=== PATIENT | male | born 1985 | race Caucasian/White ===

== ENCOUNTER 2020-01-06 09:47 | Emergency (ER) | payer SELFPAY | END 2020-01-06 15:44 | LOC: ERS 09:47 | DX: R45.851 Suicidal ideations (principal); S71.111D Laceration without foreign body, right thigh, subsequent encounter; L03.115 Cellulitis of right lower limb; F31.9 Bipolar disorder, unspecified; F41.9 Anxiety disorder, unspecified; F17.210 Nicotine dependence, cigarettes, uncomplicated; Z79.899 Other long term (current) drug therapy; F15.10 Other stimulant abuse, uncomplicated | CPT/HCPCS: 99285 ==

== ENCOUNTER 2020-04-28 19:53 | Inpatient (IN) | payer OTHER ==
[2020-04-28] MEDS ORDERED: Rocuronium Bromide 10 MG/ML (10ML VIAL) ONE (19:54)
[2020-04-28] MEDS ORDERED: EPINEPHrine 1 MG/10 ML Abboject SYRINGE ONE (20:00)
[2020-04-28] MEDS ORDERED: Boostrix 0.5 ML (Tdap) VIAL ONE ×2 (20:03→22:48)
[2020-04-28 20:05] LABS: #Basophils 0.1 thou/uL (0.0-0.2); #Lymphocytes 2.1 thou/uL (1.20-3.40); #Monocytes 0.9 thou/uL (0.11-0.59); #Neutrophils 12.5 thou/uL (1.40-6.50); %Basophils 0.7 % (0.0-1.0); %Eosinophils 0.1 % (0.0-10.0); %Lymphocytes 13.7 % (21.0-51.0); %Monocytes 5.9 % (0.0-10.0); %Neutrophils 79.7 % (42.0-75.0); Hemoglobin 16.4 g/dL (14.0-18.0); Mean Corpuscular HGB CONC 34.2 g/dL (32.0-36.0); Mean Corpuscular Volume 93.6 fL (78.0-98.0); Mean Platelet Volume 8.2 fL (7.4-10.4); Platelet Count 319 thou/uL (130-400); RBC Distribution Width 12.3 % (11.5-14.5); Red Blood Cell (RBC) Count 5.11 mill/uL (4.70-6.10); White Blood Cell (WBC) Count 15.7 thou/uL (4.8-10.8)
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
[2020-04-28 20:12] LABS: INR-International Normal Ratio 1.1; PTT 23.5 sec (22.9-36.1); Prothrombin Time 14.5 sec (12.0-14.7)
[2020-04-28] MEDS ORDERED: Gentamicin 300 MG in Sodium Chloride 0.9% 100 ML IVPB ONE (20:15)
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
[2020-04-28 20:33] LABS: Acetaminophen Less than 6.0 mcg/mL (10.0-30.0); Alcohol 227 mg/dL (Less than 10); Salicylate Less than 8.0 mg/dL (15.0-30.0)
[2020-04-28 20:36] LABS: Lactic Acid 9.6 mmol/L (0.5-2.2)
[2020-04-28 20:47] LABS: ALT (SGPT) 47 U/L (8-55); AST (SGOT) 39 U/L (5-34); Albumin 3.3 g/dL (3.5-5.0); Alcohol 198 mg/dL (Less than 10); Alkaline Phosphatase 62 U/L (40-110); Anion Gap 21 mmol/L (10-20); BUN (Urea Nitrogen) 16 mg/dL (8.9-20.6); Bilirubin, Total 0.6 mg/dL (0.2-1.2); Calc. Creatinine Clearance 0 mL/min (70-130); Calcium 7.4 mg/dL (7.8-10.44); Carbon Dioxide 11 mmol/L (22-29); Chloride 108 mmol/L (98-107); Estimated GFR-MDRD Greater than 90; Globulin 2.2 g/dL (2.4-3.5); Glucose 75 mg/dL (70-105); Potassium 3.4 mmol/L (3.5-5.1); Protein, Total 5.5 g/dL (6.0-8.3); Sodium 137 mmol/L (136-145)
[2020-04-28 20:50] LABS: Bilirubin Negative (Negative); Blood, Urine Negative (Negative); Clarity Clear (Clear); Glucose, Urine (Dipstick) Normal (Negative); Ketone, Urine 20 mg/dL (Negative); Leukocyte Negative Leu/uL (Negative); Nitrite Negative (Negative); Protein, Urine (Dipstick) 10 mg/dL (Neg-Trace); Specific Gravity, Urine 1.014 (1.002-1.036); Urobilinogen Normal mg/dL (Less than 2)
[2020-04-28 21:03] LABS: Amphetamine Detected (NotDetected); Barbiturates Screen Not Detected (NotDetected); Benzodiazepine Screen Not Detected (NotDetected); Cocaine Metabolite Screen Not Detected (NotDetected); Medtox Control Line Valid? VALID (VALID); Medtox Reader # READER 4; Methadone Not Detected (NotDetected); Methamphetamine Not Detected (NotDetected); Opiate Screen Not Detected (NotDetected); Oxycodone Screen Not Detected (NotDetected); Phencyclidine (PCP) Not Detected (NotDetected); THC/Cannabinoid Screen Not Detected (NotDetected); Tricyclic Screen Not Detected (NotDetected)
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
[2020-04-28 21:08] LABS: Actual Bicarbonate (HCO3a) 14.1 mEq/L (22-28); Base Excess (BEa) -13.6 mEq/L (-2.0 to +3.0); CO2 Tension 38.7 mmHg (35.0-45.0); Calcium, Ionized (arterial) 1.08 mmol/L (1.12-1.30); Carboxyhemoglobin (COHb) 1.4 gm% (0.0-3.0); Hemoglobin (Hb) 14.1 g/dL (14.0-18.0); O2 Tension (PaO2), arterial 274.1 mmHg (80.0-100.0); Potassium - ABG Lab 3.52 mmol/L (3.70-5.30)
[2020-04-28 21:14] LABS: ALV-art Gradient 390.525 mmHg (0-20); Puncture Site RRA; pH, Arterial 7.18 (7.35-7.45)
[2020-04-28] MEDS ORDERED: Sodium Bicarb 50 MEQ/50 ML Abboject 8.4% SYRINGE ONE (21:16)
[2020-04-28] MEDS ORDERED: Dextrose 50% Abboject 50 ML SYRINGE SLOW IVP PRN (21:53)
[2020-04-28] MEDS ORDERED: Dextrose 5% in Water 1,000 ML IV PRN (21:53)
[2020-04-28] MEDS ORDERED: Sodium Chloride 0.9% 1,000 ML IV SCH (22:00)
[2020-04-28] MEDS ORDERED: Ventilator Sedation Protocol 1 EACH FS ONE (22:06)
[2020-04-28] MEDS ORDERED: Calcium Chloride 1 GM/10 ML Abboject SYRINGE IVP SCH (22:15)
[2020-04-28] MEDS ORDERED: Acetaminophen 650 MG Suppository PR PRN (22:16)
[2020-04-28] MEDS ORDERED: Lorazepam 2 MG/ML VIAL SLOW IVP PRN (22:30)
[2020-04-28] MEDS ORDERED: Morphine 2 MG/ML VIAL SLOW IVP PRN (22:30)
[2020-04-28] MEDS ORDERED: Propofol BOLUS 1,000 MG/100 ML VIAL IV PRN (22:30)
[2020-04-28] MEDS ORDERED: Propofol 1,000 MG/100 ML VIAL IV PRN (22:30)
[2020-04-28] MEDS ORDERED: DISCONTINUE PREVIOUS NARCOTIC PAIN MEDICATIONS AND BENZODIAZEPINES FS SCH (22:30)
[2020-04-28] MEDS ORDERED: Fentanyl BOLUS 250 ML IVPB PRN (22:30)
[2020-04-28 22:31] LABS: Magnesium 1.6 mg/dL (1.6-2.6); Phosphorus 4.2 mg/dL (2.3-4.7)
[2020-04-28 22:43] LABS: Base Excess (BEa) -6.5 mEq/L (-2.0 to +3.0); CO2 Tension 37.8 mmHg (35.0-45.0); Calcium, Ionized (arterial) 0.96 mmol/L (1.12-1.30); Carboxyhemoglobin (COHb) 0.8 gm% (0.0-3.0); Hemoglobin (Hb) 14.1 g/dL (14.0-18.0); O2 Tension (PaO2), arterial 352.7 mmHg (80.0-100.0); Potassium - ABG Lab 3.92 mmol/L (3.70-5.30); pH, Arterial 7.32 (7.35-7.45)
[2020-04-28 22:50] LABS: Puncture Site RRA
[2020-04-28] MEDS ORDERED: Potassium Phosphate 30 MMOL in Sodium Chloride 0.9% 250 ML 250 ML IVPB SCH (23:00)
[2020-04-28 23:57] LABS: Lactic Acid 6.1 mmol/L (0.5-2.2)
[2020-04-28] MEDS: Sodium Chloride 0.9% 1,000 ML IV SCH (23:58)
[2020-04-29] MEDS ORDERED: Calcium Chloride 1 GM/10 ML Abboject SYRINGE IVP SCH (00:06)
[2020-04-29 00:55] VITALS: BMI 26.6
[2020-04-29] MEDS ORDERED: CALCIUM CHLORIDE IVPB SCH (01:00)
[2020-04-29] MEDS ORDERED: SODIUM CHLORIDE 0.9% IVPB SCH (01:00)
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
[2020-04-29] MEDS ORDERED: Sodium Chloride 0.9% 1,000 ML IV SCH ×3 (06:26→13:45)
[2020-04-29] MEDS ORDERED: FLU VACC QS2020-21(6MOS UP)/PF 60 MCG/0.5 ML SYRINGE IM ONE (07:45)
[2020-04-29] MEDS ORDERED: Fosphenytoin Sodium 1,250 MG in Sodium Chloride 0.9% 50 ML IVPB SCH (08:00)
[2020-04-29 08:06] LABS: #Lymphocytes 1.2 thou/uL (1.20-3.40); #Monocytes 1.2 thou/uL (0.11-0.59); #Neutrophils 16.1 thou/uL (1.40-6.50); %Basophils 0.2 % (0.0-1.0); %Eosinophils 0.1 % (0.0-10.0); %Lymphocytes 6.5 % (21.0-51.0); %Monocytes 6.2 % (0.0-10.0); %Neutrophils 87.1 % (42.0-75.0); Hemoglobin 13.3 g/dL (14.0-18.0); Mean Corpuscular HGB CONC 34.6 g/dL (32.0-36.0); Mean Corpuscular Hemoglobin 32.9 pg (27.0-31.0); Mean Corpuscular Volume 95.1 fL (78.0-98.0); Mean Platelet Volume 8.8 fL (7.4-10.4); Platelet Count 223 thou/uL (130-400); RBC Distribution Width 12.4 % (11.5-14.5); Red Blood Cell (RBC) Count 4.06 mill/uL (4.70-6.10); White Blood Cell (WBC) Count 18.5 thou/uL (4.8-10.8)
[2020-04-29] MEDS: Sodium Chloride 0.9% 1,000 ML IV SCH ×3 (08:12→17:21)
[2020-04-29 08:40] LABS: Actual Bicarbonate (HCO3a) 19.6 mEq/L (22-28); Base Excess (BEa) -5.3 mEq/L (-2.0 to +3.0); CO2 Tension 36.3 mmHg (35.0-45.0); Calcium, Ionized (arterial) 1.31 mmol/L (1.12-1.30); Carboxyhemoglobin (COHb) 0.3 gm% (0.0-3.0); Hemoglobin (Hb) 12.4 g/dL (14.0-18.0); O2 Tension (PaO2), arterial 112.8 mmHg (80.0-100.0); Potassium - ABG Lab 5.39 mmol/L (3.70-5.30); Puncture Site LBA; pH, Arterial 7.35 (7.35-7.45)
[2020-04-29 08:41] LABS: ALV-art Gradient 198.325 mmHg (0-20)
[2020-04-29] MEDS: fentaNYL Citrate/PF 2,000 MCG in Sodium Chloride 0.9% 60 ML IV SCH (08:47)
[2020-04-29] MEDS: Famotidine/PF 20 mg/2ml Vial SLOW IVP SCH ×2 (08:51→21:56)
[2020-04-29] MEDS: cefTRIAXone\\ROCEPHIN 2 GM in Sodium Chloride 0.9% 100 ML IVPB SCH (08:51)
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
[2020-04-29 09:18] LABS: Phosphorus 4.5 mg/dL (2.3-4.7)
[2020-04-29 09:19] LABS: Anion Gap 21 mmol/L (10-20); BUN (Urea Nitrogen) 14 mg/dL (8.9-20.6); Calc. Creatinine Clearance 141 mL/min (70-130); Calcium 9.6 mg/dL (7.8-10.44); Carbon Dioxide 15 mmol/L (22-29); Chloride 106 mmol/L (98-107); Estimated GFR-MDRD Greater than 90; Glucose 76 mg/dL (70-105); Magnesium 1.6 mg/dL (1.6-2.6); Potassium 4.4 mmol/L (3.5-5.1); Sodium 138 mmol/L (136-145)
[2020-04-29 09:24] LABS: Lactic Acid 3.4 mmol/L (0.5-2.2)
--- NOTE | 2020-04-29 09:49 | RAD ---
CHEST 1 VIEW: Date: 04/29/2020 HISTORY: Intubated patient. COMPARISON: Radiograph dated 04/28/2020. FINDINGS: New right middle lobe and right lower lobe consolidation with some volume loss. Left lung is clear. N o pneumothorax. Endotracheal tube tip at the level of the clavicles. Enteric tube tip at gastric fund us. IMPRESSION: 1. New right middle lobe and right lower lobe consolidative process with some volume loss suggesting atelectatic changes. 2. Satisfactory location of endotracheal and enteric tubes. POS: [facility]
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
[2020-04-29] MEDS ORDERED: Magnesium 2 GM/50 ML 2 GM in Premix Bag 1 BAG IVPB SCH (12:30)
[2020-04-29 12:50] LABS: INR-International Normal Ratio 1.1; PTT 26.9 sec (22.9-36.1); Prothrombin Time 14.7 sec (12.0-14.7)
[2020-04-29] MEDS ORDERED: Iopamidol 370 76% 100 ML VIAL ONE (12:51)
[2020-04-29] MEDS: Acetaminophen 650 MG Suppository PR SCH ×2 (13:53→18:35)
[2020-04-29] MEDS: Insulin Regular 300 UNITS/3 ML VIAL SC PRN (18:03)
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
[2020-04-30] MEDS ORDERED: diphenhydrAMINE 50 MG/ML VIAL IVP SCH (00:15)
[2020-04-30] MEDS: Acetaminophen 650 MG Suppository PR SCH ×3 (01:03→22:21)
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
[2020-04-30] MEDS: Sodium Chloride 0.9% 1,000 ML IV SCH ×3 (02:14→17:30)
[2020-04-30 04:29] LABS: Anion Gap 9 mmol/L (10-20); BUN (Urea Nitrogen) 10 mg/dL (8.9-20.6); Calc. Creatinine Clearance 151 mL/min (70-130); Calcium 7.8 mg/dL (7.8-10.44); Carbon Dioxide 25 mmol/L (22-29); Chloride 104 mmol/L (98-107); Estimated GFR-MDRD Greater than 90; Glucose 148 mg/dL (70-105); Magnesium 1.9 mg/dL (1.6-2.6); Sodium 134 mmol/L (136-145)
[2020-04-30 04:30] LABS: #Lymphocytes 0.9 thou/uL (1.20-3.40); #Monocytes 0.8 thou/uL (0.11-0.59); %Basophils 0.2 % (0.0-1.0); %Eosinophils 0.1 % (0.0-10.0); %Lymphocytes 8.2 % (21.0-51.0); %Monocytes 7.2 % (0.0-10.0); %Neutrophils 84.3 % (42.0-75.0); Hemoglobin 10.1 g/dL (14.0-18.0); Mean Corpuscular HGB CONC 35.6 g/dL (32.0-36.0); Mean Corpuscular Hemoglobin 33.7 pg (27.0-31.0); Mean Corpuscular Volume 94.8 fL (78.0-98.0); Mean Platelet Volume 8.6 fL (7.4-10.4); Phosphorus 1.4 mg/dL (2.3-4.7); Platelet Count 130 thou/uL (130-400); Red Blood Cell (RBC) Count 3.01 mill/uL (4.70-6.10); White Blood Cell (WBC) Count 10.7 thou/uL (4.8-10.8)
[2020-04-30] MEDS ORDERED: Sodium Phosphate 30 MMOL in Sodium Chloride 0.9% 250 ML 250 ML IVPB SCH (05:30)
[2020-04-30] MEDS: fentaNYL Citrate/PF 2,000 MCG in Sodium Chloride 0.9% 60 ML IV SCH ×2 (05:52→22:26)
[2020-04-30] MEDS: diphenhydrAMINE 50 MG/ML VIAL IVP PRN (06:19)
[2020-04-30 06:57] LABS: Actual Bicarbonate (HCO3a) 23.8 mEq/L (22-28); Base Excess (BEa) 1.2 mEq/L (-2.0 to +3.0); CO2 Tension 30.6 mmHg (35.0-45.0); Calcium, Ionized (arterial) 1.14 mmol/L (1.12-1.30); Carboxyhemoglobin (COHb) 0.2 gm% (0.0-3.0); Hemoglobin (Hb) 10.3 g/dL (14.0-18.0); O2 Tension (PaO2), arterial 141.1 mmHg (80.0-100.0); Potassium - ABG Lab 3.72 mmol/L (3.70-5.30); pH, Arterial 7.51 (7.35-7.45)
[2020-04-30] MEDS ORDERED: Magnesium 2 GM/50 ML 2 GM in Premix Bag 1 BAG IVPB SCH (07:45)
[2020-04-30 07:54] LABS: Puncture Site RRAD
[2020-04-30] MEDS ORDERED: Lidocaine 1% w/Epinephrine 1:100K 20 ML VIAL ONE (08:09)
[2020-04-30] MEDS ORDERED: Lidocaine 1% w/Epinephrine 1:100K 20 ML VIAL FS SCH (08:15)
[2020-04-30] MEDS ORDERED: Midazolam HCl 2 mg/2 ml Vial SLOW IVP SCH (08:15)
[2020-04-30] MEDS ORDERED: Vecuronium 10 MG VIAL IV SCH (08:15)
[2020-04-30] MEDS: cefTRIAXone\\ROCEPHIN 2 GM in Sodium Chloride 0.9% 100 ML IVPB SCH (08:38)
[2020-04-30] MEDS: Famotidine/PF 20 mg/2ml Vial SLOW IVP SCH ×2 (08:39→20:44)
--- NOTE | 2020-04-30 09:49 | RAD ---
PORTABLE CHEST: HISTORY: Right lower lobe pneumonia. COMPARISON: Prior day's exam. FINDINGS: Heart size and mediastinum within normal limits. Endotracheal and NG tubes are in satisfactory posit ion. Right lower lobe infiltrative lung changes are improved as compared to the prior examination. IMPRESSION: Right basilar infiltrative change improved as compared to the prior study. POS: KVNG
[2020-04-30] MEDS: Midazolam HCl 2 mg/2 ml Vial ONE ×2 (10:15→10:25)
[2020-04-30] MEDS ORDERED: Midazolam HCl 2 mg/2 ml Vial IVP SCH (11:00)
--- NOTE | 2020-04-30 13:08 | PRG ---
DATE OF SERVICE: 04/30/2020 Mr. Galindo remains neurologically stable with a GCS of 10T. He follows commands in bilateral upper extremities. He keeps his right eye closed today. He has already had tracheostomy and PEG tube placement. Tomorrow morning, he is scheduled for wiring of his jaw. At that time, I will take the opportunity to debride his left frontal exit wound and attempt closure. Job ID: [id number]
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
[2020-04-30 14:14] LABS: Actual Bicarbonate (HCO3a) 23.5 mEq/L (22-28); CO2 Tension 33.9 mmHg (35.0-45.0); Calcium, Ionized (arterial) 1.09 mmol/L (1.12-1.30); Carboxyhemoglobin (COHb) 0.3 gm% (0.0-3.0); Hemoglobin (Hb) 9.3 g/dL (14.0-18.0); O2 Tension (PaO2), arterial 212.6 mmHg (80.0-100.0); Potassium - ABG Lab 3.62 mmol/L (3.70-5.30); pH, Arterial 7.46 (7.35-7.45)
[2020-04-30 14:34] LABS: Puncture Site RBRACH
[2020-04-30 14:35] LABS: ALV-art Gradient 244.125 mmHg (0-20)
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
[2020-04-30 16:01] LABS: Actual Bicarbonate (HCO3a) 24.2 mEq/L (22-28); Base Excess (BEa) 1.1 mEq/L (-2.0 to +3.0); CO2 Tension 32.8 mmHg (35.0-45.0); Calcium, Ionized (arterial) 1.11 mmol/L (1.12-1.30); Carboxyhemoglobin (COHb) 0.2 gm% (0.0-3.0); O2 Tension (PaO2), arterial 109.8 mmHg (80.0-100.0); Potassium - ABG Lab 3.64 mmol/L (3.70-5.30); pH, Arterial 7.49 (7.35-7.45)
[2020-04-30 16:04] LABS: Puncture Site RBRACH
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
[2020-04-30] MEDS: Acetaminophen 500 MG TAB PER TUBE SCH (18:54)
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
[2020-05-01] MEDS: Sodium Chloride 0.9% 1,000 ML IV SCH ×4 (00:37→18:35)
[2020-05-01] MEDS: Acetaminophen 500 MG TAB PER TUBE SCH ×5 (00:38→23:00)
--- NOTE | 2020-05-01 02:58 | PRG ---
DATE OF SERVICE: 04/30/2020 SUBJECTIVE: The patient was seen during evening rounds on the critical care unit. The patient is on full mechanical ventilatory support. The patient is only receiving fentanyl for pain and sedation at this time, dose is 100 mcg per hour. The patient's urinary output is adequate. The patient's vital signs are stable and temperature is 100.1 currently. The patient arouses to voice and follows commands. Current [place] Coma Scale is E3, V1, M6 for a for a total of 10T. PLAN: Continue full mechanical ventilatory support. Continue to monitor urinary output and ensure patient's MAP stays 70 or above. The patient is going to the OR tomorrow with Oral Maxillofacial Surgery and Neurosurgery. The patient was evaluated by Ophthalmology, Dr. Evans, who recommends no specific treatment, but we will follow him periodically. Job ID: [id number]
[2020-05-01 04:33] LABS: Anion Gap 11 mmol/L (10-20); BUN (Urea Nitrogen) 6 mg/dL (8.9-20.6); Calc. Creatinine Clearance 177 mL/min (70-130); Calcium 7.8 mg/dL (7.8-10.44); Carbon Dioxide 24 mmol/L (22-29); Chloride 104 mmol/L (98-107); Estimated GFR-MDRD Greater than 90; Glucose 107 mg/dL (70-105); Magnesium 1.9 mg/dL (1.6-2.6); Phosphorus 2.2 mg/dL (2.3-4.7); Potassium 3.7 mmol/L (3.5-5.1); Sodium 135 mmol/L (136-145)
[2020-05-01 05:12] LABS: #Monocytes 0.6 thou/uL (0.11-0.59); #Neutrophils 6.9 thou/uL (1.40-6.50); %Basophils 0.3 % (0.0-1.0); %Eosinophils 0.5 % (0.0-10.0); %Lymphocytes 11.5 % (21.0-51.0); %Monocytes 7.3 % (0.0-10.0); %Neutrophils 80.4 % (42.0-75.0); Hemoglobin 9.1 g/dL (14.0-18.0); Mean Corpuscular HGB CONC 36.9 g/dL (32.0-36.0); Mean Corpuscular Hemoglobin 34.5 pg (27.0-31.0); Mean Corpuscular Volume 93.6 fL (78.0-98.0); Platelet Count 108 thou/uL (130-400); Platelet Morphology Comment Appears Decreased; RBC Distribution Width 11.7 % (11.5-14.5); Red Blood Cell (RBC) Count 2.64 mill/uL (4.70-6.10); White Blood Cell (WBC) Count 8.6 thou/uL (4.8-10.8)
[2020-05-01 07:32] LABS: Actual Bicarbonate (HCO3a) 25.3 mEq/L (22-28); Base Excess (BEa) 1.3 mEq/L (-2.0 to +3.0); CO2 Tension 37.8 mmHg (35.0-45.0); Calcium, Ionized (arterial) 1.13 mmol/L (1.12-1.30); Carboxyhemoglobin (COHb) 0.1 gm% (0.0-3.0); Hemoglobin (Hb) 11.8 g/dL (14.0-18.0); O2 Tension (PaO2), arterial 123.8 mmHg (80.0-100.0); Potassium - ABG Lab 3.49 mmol/L (3.70-5.30); pH, Arterial 7.44 (7.35-7.45)
[2020-05-01] MEDS ORDERED: Magnesium 2 GM/50 ML 2 GM in Premix Bag 1 BAG IVPB SCH (08:00)
[2020-05-01] MEDS ORDERED: Calcium Chloride 1 GM/10 ML Abboject SYRINGE IVP SCH (08:00)
[2020-05-01] MEDS ORDERED: Potassium Phosphate 30 MMOL in Sodium Chloride 0.9% 250 ML 250 ML IVPB SCH (08:00)
[2020-05-01 08:10] LABS: Puncture Site RRAD
--- NOTE | 2020-05-01 08:39 | RAD ---
Chest one view HISTORY: Pneumonia. Follow-up. COMPARISON: 04/30/2020. FINDINGS: Cardiac silhouette is magnified by projection. Shallow inspiration accentuates pulmonary ma rkings. Mediastinum is midline. Tracheostomy appliance in place. Mild infiltrate at the right lung base is stable.. No evidence of pneumothorax. IMPRESSION : Mild right basilar infiltrate stable.. Tracheostomy appliance in good radiographic position. Interval removal of the nasogastric tube.
[2020-05-01] MEDS: Famotidine/PF 20 mg/2ml Vial SLOW IVP SCH ×2 (09:20→20:37)
[2020-05-01] MEDS: cefTRIAXone\\ROCEPHIN 2 GM in Sodium Chloride 0.9% 100 ML IVPB SCH (09:22)
[2020-05-01] MEDS ORDERED: PROPOFOL 200 MG/20 ML VIAL ONE (09:45)
[2020-05-01] MEDS ORDERED: Lidocaine 1% PF 5 ML VIAL ONE (09:45)
[2020-05-01] MEDS ORDERED: Rocuronium Bromide 10 MG/ML (10ML VIAL) ONE (09:45)
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
[2020-05-01] MEDS ORDERED: Chlorhexidine Gluconate 15 ML UDCUP SSP ONE (12:02)
[2020-05-01] MEDS ORDERED: Fentanyl 100 MCG/2 ML VIAL ONE (12:08)
[2020-05-01] MEDS ORDERED: Midazolam HCl 2 mg/2 ml Vial ONE (12:08)
[2020-05-01] MEDS ORDERED: Sodium Chloride 0.9% 10 ML ONE ×2 (12:11→13:27)
[2020-05-01] MEDS ORDERED: Lidocaine 1% w/Epinephrine 1:100K 20 ML VIAL ONE (12:11)
[2020-05-01] MEDS ORDERED: Bacitracin Zinc Ointment 30 gm TUBE ONE (12:11)
[2020-05-01] MEDS ORDERED: Rocuronium Bromide 50 MG/5 ML VIAL ONE ×2 (14:52→14:54)
[2020-05-01] MEDS ORDERED: SUGAMMADEX SODIUM 200 MG/2 ML VIAL ONE (15:01)
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
[2020-05-01] MEDS: fentaNYL Citrate/PF 2,000 MCG in Sodium Chloride 0.9% 60 ML IV SCH (20:05)
[2020-05-01] MEDS: Sodium Chloride 1 GM TAB PER TUBE SCH (20:37)
[2020-05-02] MEDS: Sodium Chloride 0.9% 1,000 ML IV SCH ×3 (00:25→17:44)
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
[2020-05-02 04:04] LABS: Anion Gap 11 mmol/L (10-20); BUN (Urea Nitrogen) 8 mg/dL (8.9-20.6); Calc. Creatinine Clearance 164 mL/min (70-130); Calcium 7.9 mg/dL (7.8-10.44); Carbon Dioxide 25 mmol/L (22-29); Chloride 103 mmol/L (98-107); Estimated GFR-MDRD Greater than 90; Glucose 134 mg/dL (70-105); Phosphorus 2.3 mg/dL (2.3-4.7); Potassium 3.5 mmol/L (3.5-5.1); Sodium 135 mmol/L (136-145)
[2020-05-02 04:10] LABS: Band 2 % (5-11); Eosinophils 1 % (0-10); Hemoglobin 9.1 g/dL (14.0-18.0); Lymphocytes 16 % (21-51); MDiff Complete? YES; Mean Corpuscular HGB CONC 34.6 g/dL (32.0-36.0); Mean Corpuscular Hemoglobin 32.6 pg (27.0-31.0); Mean Corpuscular Volume 94.2 fL (78.0-98.0); Mean Platelet Volume 8.7 fL (7.4-10.4); Monocytes 3 % (0-10); Neutrophil 78 % (42-75); Platelet Count 159 thou/uL (130-400); RBC Distribution Width 11.7 % (11.5-14.5); Red Blood Cell (RBC) Count 2.79 mill/uL (4.70-6.10); White Blood Cell (WBC) Count 7.6 thou/uL (4.8-10.8)
[2020-05-02] MEDS: Acetaminophen 500 MG TAB PER TUBE SCH ×3 (05:22→19:41)
[2020-05-02 07:24] LABS: Actual Bicarbonate (HCO3a) 25.3 mEq/L (22-28); Base Excess (BEa) 1.5 mEq/L (-2.0 to +3.0); CO2 Tension 36.9 mmHg (35.0-45.0); Calcium, Ionized (arterial) 1.15 mmol/L (1.12-1.30); Carboxyhemoglobin (COHb) 0.3 gm% (0.0-3.0); Hemoglobin (Hb) 12.1 g/dL (14.0-18.0); O2 Tension (PaO2), arterial 111.8 mmHg (80.0-100.0); Potassium - ABG Lab 3.29 mmol/L (3.70-5.30); pH, Arterial 7.45 (7.35-7.45)
[2020-05-02 07:42] LABS: Puncture Site RBRACH
[2020-05-02 07:43] LABS: ALV-art Gradient 127.275 mmHg (0-20)
[2020-05-02] MEDS ORDERED: Potassium Phosphate 15 MMOL in Sodium Chloride 0.9% 250 ML 250 ML IVPB SCH (08:00)
[2020-05-02] MEDS: cefTRIAXone\\ROCEPHIN 2 GM in Sodium Chloride 0.9% 100 ML IVPB SCH (09:15)
[2020-05-02] MEDS: Gabapentin 300 MG CAP PO SCH ×4 (09:15→19:41)
[2020-05-02] MEDS: Famotidine/PF 20 mg/2ml Vial SLOW IVP SCH ×2 (09:16→19:41)
[2020-05-02] MEDS: Sodium Chloride 1 GM TAB PER TUBE SCH ×2 (09:18→19:42)
--- NOTE | 2020-05-02 10:41 | RAD ---
RADIOGRAPH CHEST 1 VIEW: DATE: 05/02/2020 TIME: 4:55 AM HISTORY: 35-year-old male with pneumonia COMPARISON: 05/01/2020 FINDINGS: Right basilar mild infiltrate appears unchanged. No cardiomegaly. Tracheostomy appliance remains. No pneumothorax. No interval change IMPRESSION: 1) mild right lower lobe infiltrate is stable. 2) no interval change overall
[2020-05-02] MEDS: Morphine 4 MG/ML VIAL SLOW IVP PRN (10:58)
[2020-05-02] MEDS: traMADol HCl 50 MG TAB PO SCH ×2 (12:03→17:43)
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
[2020-05-02] MEDS: Insulin Regular 300 UNITS/3 ML VIAL SC PRN (14:32)
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
[2020-05-03] MEDS: traMADol HCl 50 MG TAB PO SCH ×5 (00:07→23:31)
[2020-05-03] MEDS: Sodium Chloride 0.9% 1,000 ML IV SCH ×2 (00:08→11:57)
[2020-05-03] MEDS: Acetaminophen 500 MG TAB PER TUBE SCH ×5 (00:08→23:31)
[2020-05-03] MEDS: Morphine 4 MG/ML VIAL SLOW IVP PRN ×4 (00:35→21:30)
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
[2020-05-03 03:59] LABS: #Eosinphils 0.2 thou/uL (0.0-0.7); #Lymphocytes 0.8 thou/uL (1.20-3.40); #Monocytes 0.7 thou/uL (0.11-0.59); #Neutrophils 6.9 thou/uL (1.40-6.50); %Basophils 0.4 % (0.0-1.0); %Lymphocytes 8.8 % (21.0-51.0); %Monocytes 8.5 % (0.0-10.0); %Neutrophils 80.3 % (42.0-75.0); Hemoglobin 10.2 g/dL (14.0-18.0); Mean Corpuscular HGB CONC 35.8 g/dL (32.0-36.0); Mean Corpuscular Hemoglobin 33.6 pg (27.0-31.0); Mean Corpuscular Volume 93.8 fL (78.0-98.0); Mean Platelet Volume 8.1 fL (7.4-10.4); Platelet Count 228 thou/uL (130-400); RBC Distribution Width 11.8 % (11.5-14.5); Red Blood Cell (RBC) Count 3.03 mill/uL (4.70-6.10); White Blood Cell (WBC) Count 8.6 thou/uL (4.8-10.8)
[2020-05-03 04:00] LABS: Anion Gap 10 mmol/L (10-20); BUN (Urea Nitrogen) 7 mg/dL (8.9-20.6); Calc. Creatinine Clearance 183 mL/min (70-130); Calcium 8.4 mg/dL (7.8-10.44); Carbon Dioxide 26 mmol/L (22-29); Chloride 102 mmol/L (98-107); Estimated GFR-MDRD Greater than 90; Glucose 147 mg/dL (70-105); Magnesium 2.1 mg/dL (1.6-2.6); Phosphorus 2.5 mg/dL (2.3-4.7); Potassium 3.4 mmol/L (3.5-5.1); Sodium 135 mmol/L (136-145)
[2020-05-03] MEDS ORDERED: Potassium Phosphate 30 MMOL in Sodium Chloride 0.9% 250 ML 250 ML IVPB SCH (07:15)
[2020-05-03] MEDS: cefTRIAXone\\ROCEPHIN 2 GM in Sodium Chloride 0.9% 100 ML IVPB SCH (08:18)
[2020-05-03] MEDS: Sodium Chloride 1 GM TAB PER TUBE SCH ×2 (08:20→20:10)
[2020-05-03] MEDS: Famotidine/PF 20 mg/2ml Vial SLOW IVP SCH ×2 (08:20→20:09)
[2020-05-03] MEDS: Senokot S 8.6-50 MG TAB PO SCH ×2 (08:20→20:09)
[2020-05-03] MEDS: Gabapentin 300 MG CAP PO SCH ×3 (08:20→20:09)
[2020-05-03] MEDS: Polyethylene Glycol 3350 17 GM Packet PO SCH (08:22)
--- NOTE | 2020-05-03 08:29 | RAD ---
PORTABLE CHEST: HISTORY: Pneumonia. CCU followup. COMPARISON: 04/02/2020. FINDINGS: Lung waddell appear well aerated and clear of consolidation or focal infiltrate. Tracheostomy device is again noted. The heart and mediastinum appear stable. IMPRESSION: No acute interval change. POS: OFF
[2020-05-03] MEDS ORDERED: Refresh Lacri-lube Opth Oint 7 GM TUBE L EYE SCH (09:00)
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
[2020-05-03] MEDS ORDERED: Morphine 4 MG/ML VIAL SLOW IVP SCH (10:30)
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
[2020-05-03] MEDS: Chlorhexidine Gluconate 15 ML UDCUP SSP SCH (20:09)
[2020-05-03] MEDS: Melatonin 3 MG TAB PO SCH (20:09)
[2020-05-04] MEDS: Morphine 4 MG/ML VIAL SLOW IVP PRN ×4 (01:13→18:34)
[2020-05-04] MEDS: Acetaminophen 500 MG TAB PER TUBE SCH ×2 (05:01→11:35)
[2020-05-04] MEDS: traMADol HCl 50 MG TAB PO SCH ×4 (05:01→23:26)
[2020-05-04 07:00] LABS: Hemoglobin 10.4 g/dL (14.0-18.0); Mean Corpuscular HGB CONC 34.4 g/dL (32.0-36.0); Mean Corpuscular Hemoglobin 32.5 pg (27.0-31.0); Mean Corpuscular Volume 94.5 fL (78.0-98.0); Mean Platelet Volume 7.9 fL (7.4-10.4); Platelet Count 299 thou/uL (130-400); RBC Distribution Width 11.8 % (11.5-14.5); Red Blood Cell (RBC) Count 3.19 mill/uL (4.70-6.10); White Blood Cell (WBC) Count 9.6 thou/uL (4.8-10.8)
[2020-05-04 07:13] LABS: Band 3 % (5-11); Eosinophils 1 % (0-10); Lymphocytes 8 % (21-51); MDiff Complete? YES; Monocytes 10 % (0-10); Neutrophil 78 % (42-75)
[2020-05-04 07:19] LABS: Anion Gap 12 mmol/L (10-20); BUN (Urea Nitrogen) 11 mg/dL (8.9-20.6); Calc. Creatinine Clearance 183 mL/min (70-130); Calcium 8.8 mg/dL (7.8-10.44); Carbon Dioxide 25 mmol/L (22-29); Chloride 102 mmol/L (98-107); Estimated GFR-MDRD Greater than 90; Glucose 124 mg/dL (70-105); Magnesium 2.2 mg/dL (1.6-2.6); Phosphorus 3.7 mg/dL (2.3-4.7); Potassium 3.9 mmol/L (3.5-5.1); Sodium 135 mmol/L (136-145)
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
[2020-05-04] MEDS: Gabapentin 300 MG CAP PO SCH ×3 (09:11→23:23)
[2020-05-04] MEDS: Polyethylene Glycol 3350 17 GM Packet PO SCH (09:11)
[2020-05-04] MEDS: Senokot S 8.6-50 MG TAB PO SCH ×2 (09:12→23:23)
[2020-05-04] MEDS: cefTRIAXone\\ROCEPHIN 2 GM in Sodium Chloride 0.9% 100 ML IVPB SCH (09:12)
[2020-05-04] MEDS: Chlorhexidine Gluconate 15 ML UDCUP SSP SCH ×2 (09:12→23:26)
[2020-05-04] MEDS: Famotidine/PF 20 mg/2ml Vial SLOW IVP SCH ×2 (09:13→21:53)
[2020-05-04] MEDS ORDERED: Iopamidol 370 76% 50 ML VIAL FS ONE (09:17)
[2020-05-04] MEDS: Sodium Chloride 1 GM TAB PER TUBE SCH ×2 (09:26→23:24)
--- NOTE | 2020-05-04 09:29 | RAD ---
PORTABLE CHEST: INDICATION: Aspiration pneumonia. CCU followup. COMPARISON: 05/03/2020. FINDINGS: Tracheostomy device again noted. Streaky atelectatic change in the left lung base. No focal consoli dation or significant infiltrate identified. No significant change from yesterday. POS: AGW
[2020-05-04] MEDS: Acetaminophen 650 MG/20.3 ML UDCUP PER TUBE SCH ×3 (11:36→23:25)
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
[2020-05-04] MEDS: Ondansetron PF 4 MG/2 ML Vial IVP PRN (21:53)
[2020-05-04] MEDS: Melatonin 3 MG TAB PO SCH (23:24)
[2020-05-05] MEDS: traMADol HCl 50 MG TAB PO SCH ×3 (06:23→18:16)
[2020-05-05] MEDS: Acetaminophen 650 MG/20.3 ML UDCUP PER TUBE SCH ×3 (06:23→18:16)
[2020-05-05] MEDS: Gabapentin 300 MG CAP PO SCH ×3 (09:08→21:55)
[2020-05-05] MEDS: Senokot S 8.6-50 MG TAB PO SCH ×3 (09:08→21:58)
[2020-05-05] MEDS: Famotidine 20 MG TAB PO SCH ×2 (09:08→21:55)
[2020-05-05] MEDS: Polyethylene Glycol 3350 17 GM Packet PO SCH (09:08)
[2020-05-05 09:09] LABS: #Eosinphils 0.1 thou/uL (0.0-0.7); #Lymphocytes 0.9 thou/uL (1.20-3.40); #Monocytes 0.9 thou/uL (0.11-0.59); #Neutrophils 8.6 thou/uL (1.40-6.50); %Basophils 0.4 % (0.0-1.0); %Eosinophils 0.8 % (0.0-10.0); %Lymphocytes 8.1 % (21.0-51.0); %Monocytes 8.8 % (0.0-10.0); %Neutrophils 81.9 % (42.0-75.0); Hemoglobin 10.4 g/dL (14.0-18.0); Mean Corpuscular HGB CONC 33.3 g/dL (32.0-36.0); Mean Corpuscular Hemoglobin 31.8 pg (27.0-31.0); Mean Corpuscular Volume 95.5 fL (78.0-98.0); Mean Platelet Volume 7.7 fL (7.4-10.4); Platelet Count 373 thou/uL (130-400); RBC Distribution Width 11.7 % (11.5-14.5); Red Blood Cell (RBC) Count 3.26 mill/uL (4.70-6.10); White Blood Cell (WBC) Count 10.5 thou/uL (4.8-10.8)
[2020-05-05 09:41] LABS: Anion Gap 11 mmol/L (10-20); BUN (Urea Nitrogen) 15 mg/dL (8.9-20.6); Calc. Creatinine Clearance 164 mL/min (70-130); Calcium 9.1 mg/dL (7.8-10.44); Carbon Dioxide 27 mmol/L (22-29); Chloride 103 mmol/L (98-107); Estimated GFR-MDRD Greater than 90; Glucose 162 mg/dL (70-105); Magnesium 2.2 mg/dL (1.6-2.6); Phosphorus 2.6 mg/dL (2.3-4.7); Potassium 3.9 mmol/L (3.5-5.1); Sodium 137 mmol/L (136-145)
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
[2020-05-05] MEDS ORDERED: ANTIBIOTICS IVPB PRN (11:39)
[2020-05-05] MEDS: Cefepime 2 GM in Sodium Chloride 0.9% 100 ML IVPB SCH ×2 (12:01→21:54)
[2020-05-05] MEDS: Chlorhexidine Gluconate 15 ML UDCUP SSP SCH ×2 (12:15→21:55)
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
[2020-05-05] MEDS: Vancomycin 1.5 GRAM/300 ML BAG 1.5 GM in Premix Bag 1 BAG IVPB SCH ×2 (13:52→21:56)
[2020-05-05] MEDS: Morphine 4 MG/ML VIAL SLOW IVP PRN (15:25)
[2020-05-05] MEDS: metroNIDAZOLE 500 MG in Premix Bag 1 BAG IVPB SCH ×2 (16:10→21:57)
--- NOTE | 2020-05-05 19:12 | PRG ---
DATE OF SERVICE: 05/05/2020 SUBJECTIVE: The patient remains in ICU. He was on the ventilator 2 nights ago, but has not required ventilation since. The patient has had an IVC filter placed. Repeat CAT scan of the head was obtained to rule out any progression in his disease. Dr. Collazo has reviewed this and there is no pneumocephalus. He does apparently have a CSF leak progressing into his orbit. Dr. Collazo will talk to OMFS about management of this. The patient will continue to be monitored in the ICU. OBJECTIVE: LUNGS: Clear to auscultation. CARDIAC: Regular rate and rhythm without murmur or gallop. ABDOMEN: Soft, nontender. Continue tube feedings. Management per Neurosurgery and [facility]. Job ID: [id number]
[2020-05-05] MEDS ORDERED: Zolpidem Tartrate 5 MG TAB PO SCH (21:30)
[2020-05-05] MEDS: Melatonin 3 MG TAB PO SCH (21:54)
[2020-05-06] MEDS: Acetaminophen 650 MG/20.3 ML UDCUP PER TUBE SCH ×5 (01:22→23:44)
[2020-05-06] MEDS: traMADol HCl 50 MG TAB PO SCH ×5 (01:23→23:43)
[2020-05-06] MEDS: Cefepime 2 GM in Sodium Chloride 0.9% 100 ML IVPB SCH ×3 (05:03→21:04)
[2020-05-06] MEDS: metroNIDAZOLE 500 MG in Premix Bag 1 BAG IVPB SCH ×3 (06:36→21:25)
[2020-05-06] MEDS: Vancomycin 1.5 GRAM/300 ML BAG 1.5 GM in Premix Bag 1 BAG IVPB SCH ×3 (08:41→23:44)
[2020-05-06] MEDS: Gabapentin 300 MG CAP PO SCH ×3 (09:52→21:05)
[2020-05-06] MEDS: Chlorhexidine Gluconate 15 ML UDCUP SSP SCH ×2 (09:52→21:15)
[2020-05-06] MEDS: Famotidine 20 MG TAB PO SCH ×2 (09:52→21:05)
[2020-05-06] MEDS: Senokot S 8.6-50 MG TAB PO SCH ×2 (11:31→21:05)
[2020-05-06] MEDS: Polyethylene Glycol 3350 17 GM Packet PO SCH (11:31)
[2020-05-06 15:19] LABS: Vancomycin, Trough 14.1 ug/mL
--- NOTE | 2020-05-06 18:10 | PRG ---
DATE OF SERVICE: 05/06/2020 SUBJECTIVE: Mode Galindo is doing well today. Dr. Collazo discussed with [facility]. They are planning surgical procedure tomorrow to control his CSF leak. Please see his notes. The patient's baseline mental status is unchanged. He follows commands. He speaks. GCS 15. OBJECTIVE: LUNGS: Clear to auscultation. CARDIAC: Regular rhythm. No murmur or gallop. ABDOMEN: Soft. VITAL SIGNS: Blood pressure 144/88. LABORATORY DATA: Yesterday, unremarkable. ASSESSMENT AND PLAN: Doing well. Cerebrospinal fluid leak. Treatment per Dr. Collazo and F. Continue ICU monitoring due to the CAT scan change yesterday demonstrating some persistent mild cerebral edema. Job ID: [id number]
[2020-05-06] MEDS: Melatonin 3 MG TAB PO SCH (21:05)
[2020-05-07] MEDS: Cefepime 2 GM in Sodium Chloride 0.9% 100 ML IVPB SCH ×3 (03:09→20:03)
[2020-05-07 04:08] LABS: #Eosinphils 0.2 thou/uL (0.0-0.7); #Lymphocytes 1.7 thou/uL (1.20-3.40); #Monocytes 1.2 thou/uL (0.11-0.59); #Neutrophils 7.3 thou/uL (1.40-6.50); %Basophils 0.5 % (0.0-1.0); %Monocytes 11.8 % (0.0-10.0); %Neutrophils 69.7 % (42.0-75.0); Hemoglobin 10.5 g/dL (14.0-18.0); Mean Corpuscular HGB CONC 33.7 g/dL (32.0-36.0); Mean Corpuscular Hemoglobin 31.4 pg (27.0-31.0); Mean Corpuscular Volume 93.4 fL (78.0-98.0); Mean Platelet Volume 7.6 fL (7.4-10.4); Platelet Count 524 thou/uL (130-400); RBC Distribution Width 11.8 % (11.5-14.5); Red Blood Cell (RBC) Count 3.33 mill/uL (4.70-6.10); White Blood Cell (WBC) Count 10.4 thou/uL (4.8-10.8)
[2020-05-07] MEDS: metroNIDAZOLE 500 MG in Premix Bag 1 BAG IVPB SCH ×3 (06:06→21:58)
[2020-05-07] MEDS: Acetaminophen 650 MG/20.3 ML UDCUP PER TUBE SCH ×3 (06:06→18:04)
[2020-05-07] MEDS: traMADol HCl 50 MG TAB PO SCH ×3 (06:07→18:05)
[2020-05-07 06:36] LABS: Calcium 9.1 mg/dL (7.8-10.44); Chloride 103 mmol/L (98-107); Glucose 112 mg/dL (70-105); Potassium 4.1 mmol/L (3.5-5.1); Sodium 135 mmol/L (136-145)
[2020-05-07 06:38] LABS: Anion Gap 15 mmol/L (10-20); Carbon Dioxide 21 mmol/L (22-29)
[2020-05-07 06:40] LABS: Calc. Creatinine Clearance 155 mL/min (70-130); Estimated GFR-MDRD Greater than 90
[2020-05-07] MEDS ORDERED: Fentanyl 250 MCG/5 ML VIAL ONE (06:40)
[2020-05-07 06:41] LABS: BUN (Urea Nitrogen) 12 mg/dL (8.9-20.6)
[2020-05-07] MEDS ORDERED: HYDROmorphone 2 MG/ML VIAL ONE (06:41)
[2020-05-07] MEDS ORDERED: Propofol 1,000 MG/100 ML VIAL IV ONE (06:41)
[2020-05-07 06:42] LABS: Magnesium 2.1 mg/dL (1.6-2.6)
[2020-05-07 06:44] LABS: Phosphorus 3.3 mg/dL (2.3-4.7)
[2020-05-07] MEDS ORDERED: Thrombin 5000 UNITS/5 ML VIAL ONE (07:02)
[2020-05-07] MEDS ORDERED: Sodium Chloride 0.9% 0 ML ONE (07:02)
[2020-05-07] MEDS ORDERED: Midazolam HCl 5 mg/5 ml Vial ONE (07:05)
[2020-05-07] MEDS ORDERED: Phenylephrine 10 MG/ML VIAL ONE (07:06)
[2020-05-07] MEDS ORDERED: Vecuronium 10 MG VIAL ONE ×4 (08:45→11:34)
[2020-05-07] MEDS: Vancomycin 1.5 GRAM/300 ML BAG 1.5 GM in Premix Bag 1 BAG IVPB SCH ×2 (09:38→15:53)
[2020-05-07] MEDS ORDERED: SUGAMMADEX SODIUM 200 MG/2 ML VIAL ONE (10:41)
[2020-05-07] MEDS: Gabapentin 300 MG CAP PO SCH ×3 (11:05→20:05)
[2020-05-07] MEDS: Famotidine 20 MG TAB PO SCH ×2 (11:05→20:04)
[2020-05-07] MEDS: Polyethylene Glycol 3350 17 GM Packet PO SCH (11:05)
[2020-05-07] MEDS: Senokot S 8.6-50 MG TAB PO SCH ×2 (11:05→20:05)
[2020-05-07] MEDS: Chlorhexidine Gluconate 15 ML UDCUP SSP SCH ×2 (11:05→20:04)
[2020-05-07] MEDS ORDERED: Dexamethasone 20 MG/5 ML VIAL ONE (11:34)
[2020-05-07] MEDS ORDERED: Ondansetron PF 4 MG/2 ML Vial ONE (11:34)
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
[2020-05-07 16:16] LABS: Vancomycin, Trough 14.3 ug/mL
[2020-05-07] MEDS: Morphine 4 MG/ML VIAL SLOW IVP PRN (17:16)
[2020-05-07] MEDS: Melatonin 3 MG TAB PO SCH (20:05)
[2020-05-07] MEDS: Vancomycin HCl 1.75 GM in Sodium Chloride 0.9% 500 ML IVPB SCH (22:04)
[2020-05-08] MEDS: traMADol HCl 50 MG TAB PO SCH ×4 (00:02→18:20)
[2020-05-08] MEDS: Acetaminophen 650 MG/20.3 ML UDCUP PER TUBE SCH ×4 (00:02→18:20)
[2020-05-08] MEDS: Cefepime 2 GM in Sodium Chloride 0.9% 100 ML IVPB SCH ×3 (05:06→20:04)
[2020-05-08] MEDS: metroNIDAZOLE 500 MG in Premix Bag 1 BAG IVPB SCH ×3 (05:09→22:32)
[2020-05-08] MEDS: Vancomycin HCl 1.75 GM in Sodium Chloride 0.9% 500 ML IVPB SCH ×3 (07:29→23:23)
[2020-05-08 08:22] LABS: #Basophils 0.1 thou/uL (0.0-0.2); #Eosinphils 0.2 thou/uL (0.0-0.7); #Lymphocytes 1.5 thou/uL (1.20-3.40); #Monocytes 1.4 thou/uL (0.11-0.59); #Neutrophils 8.3 thou/uL (1.40-6.50); %Basophils 0.6 % (0.0-1.0); %Eosinophils 1.3 % (0.0-10.0); %Lymphocytes 13.5 % (21.0-51.0); %Neutrophils 72.6 % (42.0-75.0); Mean Corpuscular HGB CONC 32.7 g/dL (32.0-36.0); Mean Corpuscular Hemoglobin 30.9 pg (27.0-31.0); Mean Corpuscular Volume 94.4 fL (78.0-98.0); Mean Platelet Volume 7.4 fL (7.4-10.4); Platelet Count 619 thou/uL (130-400); RBC Distribution Width 12.1 % (11.5-14.5); Red Blood Cell (RBC) Count 3.22 mill/uL (4.70-6.10); White Blood Cell (WBC) Count 11.4 thou/uL (4.8-10.8)
--- NOTE | 2020-05-08 08:47 | PRG ---
DATE OF SERVICE: 05/08/2020 SUBJECTIVE: Mr. Galindo is on 10th day of hospital stay and is on the first postoperative day following subfrontal craniotomy with repair of CSF leak via fascia estela graft. He does have some headaches, which is not surprising. Lumbar drain is in place to allow for proper healing and prevention of further CSF drainage from the repair defect. He has had average of roughly 10 mL an hour through this drain. No additional complaints at this time. Systolic pressures are appropriate. Job ID: [id number]
[2020-05-08 08:55] LABS: Anion Gap 13 mmol/L (10-20); BUN (Urea Nitrogen) 14 mg/dL (8.9-20.6); Calc. Creatinine Clearance 180 mL/min (70-130); Calcium 8.2 mg/dL (7.8-10.44); Carbon Dioxide 23 mmol/L (22-29); Chloride 105 mmol/L (98-107); Estimated GFR-MDRD Greater than 90; Glucose 123 mg/dL (70-105); Magnesium 2.2 mg/dL (1.6-2.6); Phosphorus 2.6 mg/dL (2.3-4.7); Potassium 3.8 mmol/L (3.5-5.1); Sodium 137 mmol/L (136-145)
[2020-05-08] MEDS: Senokot S 8.6-50 MG TAB PO SCH ×2 (09:22→21:24)
[2020-05-08] MEDS: Polyethylene Glycol 3350 17 GM Packet PO SCH (09:22)
[2020-05-08] MEDS: Chlorhexidine Gluconate 15 ML UDCUP SSP SCH ×2 (09:23→20:24)
[2020-05-08] MEDS: Famotidine 20 MG TAB PO SCH ×2 (09:29→20:23)
[2020-05-08] MEDS: Gabapentin 300 MG CAP PO SCH ×3 (09:29→20:24)
[2020-05-08] MEDS: Morphine 4 MG/ML VIAL SLOW IVP PRN ×2 (09:49→13:07)
[2020-05-08] MEDS: Ondansetron PF 4 MG/2 ML Vial IVP PRN (09:49)
--- NOTE | 2020-05-08 13:03 | EKG ---
Test Reason : Blood Pressure : / mmHG Vent. Rate : 092 BPM Atrial Rate : 092 BPM P-R Int : 126 ms QRS Dur : 090 ms QT Int : 372 ms P-R-T Axes : 066 056 057 degrees QTc Int : 460 ms Normal sinus rhythm Normal ECG Confirmed by UMANG MANZANARES, BRAD ([id number]), features editor TENZIN MARTELL ([id number]) on 05/08/2020 1:02:47 PM Referred By: Confirmed By:BRAD HECK MD
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
[2020-05-08] MEDS: Melatonin 3 MG TAB PO SCH (20:30)
[2020-05-08 22:39] LABS: Vancomycin, Trough 23.7 ug/mL
[2020-05-09] MEDS: traMADol HCl 50 MG TAB PO SCH ×5 (00:09→23:17)
[2020-05-09] MEDS: Acetaminophen 650 MG/20.3 ML UDCUP PER TUBE SCH ×5 (00:09→23:17)
[2020-05-09] MEDS: Cefepime 2 GM in Sodium Chloride 0.9% 100 ML IVPB SCH ×3 (03:38→19:53)
[2020-05-09 04:53] LABS: #Basophils 0.1 thou/uL (0.0-0.2); #Eosinphils 0.2 thou/uL (0.0-0.7); #Lymphocytes 1.6 thou/uL (1.20-3.40); #Neutrophils 6.7 thou/uL (1.40-6.50); %Basophils 0.9 % (0.0-1.0); %Eosinophils 1.8 % (0.0-10.0); %Lymphocytes 16.9 % (21.0-51.0); %Monocytes 10.6 % (0.0-10.0); %Neutrophils 69.8 % (42.0-75.0); Hemoglobin 9.2 g/dL (14.0-18.0); Mean Corpuscular HGB CONC 33.7 g/dL (32.0-36.0); Mean Corpuscular Hemoglobin 31.8 pg (27.0-31.0); Mean Corpuscular Volume 94.4 fL (78.0-98.0); Mean Platelet Volume 7.5 fL (7.4-10.4); Platelet Count 589 thou/uL (130-400); RBC Distribution Width 12.1 % (11.5-14.5); White Blood Cell (WBC) Count 9.6 thou/uL (4.8-10.8)
[2020-05-09] MEDS: metroNIDAZOLE 500 MG in Premix Bag 1 BAG IVPB SCH ×3 (05:35→21:55)
[2020-05-09 05:44] LABS: Anion Gap 10 mmol/L (10-20); BUN (Urea Nitrogen) 13 mg/dL (8.9-20.6); Calc. Creatinine Clearance 174 mL/min (70-130); Calcium 8.4 mg/dL (7.8-10.44); Carbon Dioxide 26 mmol/L (22-29); Chloride 104 mmol/L (98-107); Estimated GFR-MDRD Greater than 90; Glucose 137 mg/dL (70-105); Magnesium 2.3 mg/dL (1.6-2.6); Phosphorus 3.3 mg/dL (2.3-4.7); Potassium 3.7 mmol/L (3.5-5.1); Sodium 136 mmol/L (136-145)
[2020-05-09] MEDS: Vancomycin HCl 1.75 GM in Sodium Chloride 0.9% 500 ML IVPB SCH ×3 (07:19→23:18)
[2020-05-09] MEDS ORDERED: Morphine 4 MG/ML VIAL SLOW IVP PRN (08:47)
[2020-05-09] MEDS: Gabapentin 300 MG CAP PO SCH ×3 (08:48→19:53)
[2020-05-09] MEDS ORDERED: Morphine 2 MG/ML VIAL SLOW IVP PRN (08:49)
[2020-05-09] MEDS: Polyethylene Glycol 3350 17 GM Packet PO SCH (08:51)
[2020-05-09] MEDS: Famotidine 20 MG TAB PO SCH ×2 (08:51→19:52)
[2020-05-09] MEDS: Chlorhexidine Gluconate 15 ML UDCUP SSP SCH ×2 (08:52→19:54)
[2020-05-09] MEDS: Senokot S 8.6-50 MG TAB PO SCH ×2 (09:05→19:52)
--- NOTE | 2020-05-09 09:31 | PRG ---
DATE OF SERVICE: 05/08/2020 This patient is still in the ICU this morning. Lumbar drain is set to drain 10 mL q.2 hours as previous. We will continue this. He is still receiving prophylactic antibiotic treatment. He awakens quickly at bedside, opens the right eye, is able to respond mostly using hand movements and does not attempt to speak. He reports to me that he has had continued headaches. He is getting 1000 mg of Tylenol every 6 hours as scheduled. He is also having tramadol and morphine p.r.n. I do not think there are any additional changes medications for this purpose. He has been resting in and out according to nurses at bedside. At this time, no additional intervention was planned. Job ID: [id number]
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
[2020-05-09] MEDS: Melatonin 3 MG TAB PO SCH (19:53)
[2020-05-09] MEDS: oxyCODONE 5 MG TAB PO PRN (19:53)
[2020-05-09 22:51] LABS: Vancomycin, Trough 18.3 ug/mL
[2020-05-10] MEDS: Cefepime 2 GM in Sodium Chloride 0.9% 100 ML IVPB SCH ×3 (03:47→20:21)
[2020-05-10] MEDS: metroNIDAZOLE 500 MG in Premix Bag 1 BAG IVPB SCH ×3 (06:12→22:00)
[2020-05-10] MEDS: Acetaminophen 650 MG/20.3 ML UDCUP PER TUBE SCH ×4 (06:12→23:53)
[2020-05-10] MEDS: traMADol HCl 50 MG TAB PO SCH ×4 (06:12→23:53)
[2020-05-10] MEDS: Vancomycin HCl 1.75 GM in Sodium Chloride 0.9% 500 ML IVPB SCH ×3 (07:53→22:31)
[2020-05-10] MEDS: Senokot S 8.6-50 MG TAB PO SCH ×2 (09:16→20:20)
[2020-05-10] MEDS: Polyethylene Glycol 3350 17 GM Packet PO SCH (09:16)
[2020-05-10] MEDS: Gabapentin 300 MG CAP PO SCH ×3 (09:16→20:20)
[2020-05-10] MEDS: Famotidine 20 MG TAB PO SCH ×2 (09:16→20:20)
[2020-05-10] MEDS: Chlorhexidine Gluconate 15 ML UDCUP SSP SCH ×2 (09:23→20:22)
--- NOTE | 2020-05-10 09:30 | PRG ---
DATE OF SERVICE: 05/10/2020 Mr. Galindo is now 3 days out from placement of his lumbar drain. He is draining just fine at 10 mL every 2 hours with clamping in between. He is neurologically intact with the exception of left eye injury. He reports that the salty taste in the back of his throat is certainly much better than before surgery, but not completely gone. As such, I would like to do another day of 10 mL every 2 hour drainage with likely change to 5 mL every 2 hours tomorrow. My hope is to have the lumbar drain clamped by Sunday or and removed. Job ID: [id number]
[2020-05-10] MEDS: oxyCODONE 5 MG TAB PO PRN ×2 (10:00→20:20)
[2020-05-10] MEDS ORDERED: oxyCODONE 5 MG TAB PO PRN (10:08)
[2020-05-10] MEDS ORDERED: Morphine 2 MG/ML VIAL SLOW IVP PRN (10:29)
[2020-05-10] MEDS: Melatonin 3 MG TAB PO SCH (20:20)
[2020-05-11] MEDS: Cefepime 2 GM in Sodium Chloride 0.9% 100 ML IVPB SCH ×3 (03:23→19:59)
[2020-05-11] MEDS: traMADol HCl 50 MG TAB PO SCH ×4 (05:13→23:46)
[2020-05-11] MEDS: Acetaminophen 650 MG/20.3 ML UDCUP PER TUBE SCH ×4 (05:13→23:47)
[2020-05-11] MEDS: metroNIDAZOLE 500 MG in Premix Bag 1 BAG IVPB SCH ×3 (05:14→21:36)
[2020-05-11] MEDS: Vancomycin HCl 1.75 GM in Sodium Chloride 0.9% 500 ML IVPB SCH ×3 (07:41→22:50)
[2020-05-11] MEDS: Senokot S 8.6-50 MG TAB PO SCH ×2 (08:31→20:03)
[2020-05-11] MEDS: Gabapentin 300 MG CAP PO SCH ×3 (08:31→20:00)
[2020-05-11] MEDS: Famotidine 20 MG TAB PO SCH ×2 (08:31→20:00)
[2020-05-11] MEDS: Polyethylene Glycol 3350 17 GM Packet PO SCH (08:31)
[2020-05-11] MEDS: Chlorhexidine Gluconate 15 ML UDCUP SSP SCH ×2 (08:35→20:02)
[2020-05-11] MEDS: Saccharomyces boulardii 250 MG CAP PO SCH ×2 (08:35→20:00)
--- NOTE | 2020-05-11 09:14 | PRG ---
DATE OF SERVICE: 05/11/2020 Mr. Galindo reports less salty taste in the back of his throat than yesterday. We will decrease his drainage to 5 mL every 2 hours and consider clamping tomorrow with removal of the lumbar drain, thinking perhaps by the end of the week we can get him to inpatient rehab. Job ID: [id number]
[2020-05-11] MEDS: oxyCODONE 5 MG TAB PO PRN ×2 (10:10→15:00)
[2020-05-11] MEDS: Melatonin 3 MG TAB PO SCH (20:00)
[2020-05-11 22:42] LABS: Vancomycin, Trough 24.7 ug/mL
[2020-05-12] MEDS ORDERED: Polyethylene Glycol 3350 17 GM Packet PO PRN (00:07)
--- NOTE | 2020-05-12 00:30 | PRG ---
DATE OF SERVICE: 05/11/2020 SUBJECTIVE: The patient was seen during evening round in the critical care unit. The patient is currently resting, in no distress. The patient continues to have liquid stools. The patient was placed on Florastor today. The patient continues to tolerate trach collar. The patient also had his tube feeds changed today. The patient's GCS remains 11T. The patient's lumbar drain remains in place. PLAN: Continue supportive care. Continue trach collar as tolerated. We will unschedule the patient's bowel regimen as he is having liquid stools. Job ID: [id number]
[2020-05-12] MEDS: Cefepime 2 GM in Sodium Chloride 0.9% 100 ML IVPB SCH ×3 (03:30→20:30)
[2020-05-12] MEDS: Acetaminophen 650 MG/20.3 ML UDCUP PER TUBE SCH ×3 (05:40→17:46)
[2020-05-12] MEDS: traMADol HCl 50 MG TAB PO SCH ×3 (05:41→17:47)
[2020-05-12] MEDS: metroNIDAZOLE 500 MG in Premix Bag 1 BAG IVPB SCH ×3 (05:41→21:31)
[2020-05-12] MEDS: Vancomycin HCl 1.75 GM in Sodium Chloride 0.9% 500 ML IVPB SCH ×3 (08:34→22:52)
[2020-05-12] MEDS: Gabapentin 300 MG CAP PO SCH ×3 (08:50→20:31)
[2020-05-12] MEDS: Senokot S 8.6-50 MG TAB PO SCH ×2 (08:50→20:32)
[2020-05-12] MEDS: Famotidine 20 MG TAB PO SCH ×2 (08:50→20:31)
[2020-05-12] MEDS: Saccharomyces boulardii 250 MG CAP PO SCH ×2 (08:50→20:32)
[2020-05-12] MEDS: Chlorhexidine Gluconate 15 ML UDCUP SSP SCH ×2 (08:51→20:31)
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
[2020-05-12 10:23] LABS: #Basophils 0.1 thou/uL (0.0-0.2); #Eosinphils 0.1 thou/uL (0.0-0.7); #Monocytes 0.8 thou/uL (0.11-0.59); #Neutrophils 9.6 thou/uL (1.40-6.50); %Basophils 0.5 % (0.0-1.0); %Eosinophils 1.2 % (0.0-10.0); %Lymphocytes 15.6 % (21.0-51.0); %Monocytes 6.3 % (0.0-10.0); %Neutrophils 76.4 % (42.0-75.0); Hemoglobin 10.6 g/dL (14.0-18.0); Mean Corpuscular HGB CONC 32.9 g/dL (32.0-36.0); Mean Corpuscular Volume 94.2 fL (78.0-98.0); Mean Platelet Volume 7.3 fL (7.4-10.4); Platelet Count 810 thou/uL (130-400); RBC Distribution Width 12.3 % (11.5-14.5); Red Blood Cell (RBC) Count 3.44 mill/uL (4.70-6.10); White Blood Cell (WBC) Count 12.5 thou/uL (4.8-10.8)
--- NOTE | 2020-05-12 11:08 | RAD ---
PORTABLE CHEST: Date: 05/12/2020 HISTORY: Cough. COMPARISON: 05/04/2020. FINDINGS: Lungs appear clear of infiltrate. Question linear atelectasis in the right lung base. Vascularity is normal. Heart and mediastinum unremarkable. IMPRESSION: No evidence of acute infiltrate. POS: AGW
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
[2020-05-12] MEDS: Melatonin 3 MG TAB PO SCH (20:32)
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
[2020-05-13] MEDS: traMADol HCl 50 MG TAB PO SCH ×6 (01:21→23:40)
[2020-05-13] MEDS: Acetaminophen 650 MG/20.3 ML UDCUP PER TUBE SCH ×4 (01:21→19:34)
[2020-05-13] MEDS: Cefepime 2 GM in Sodium Chloride 0.9% 100 ML IVPB SCH ×3 (05:02→21:02)
[2020-05-13] MEDS: metroNIDAZOLE 500 MG in Premix Bag 1 BAG IVPB SCH ×3 (05:03→21:41)
[2020-05-13] MEDS: Saccharomyces boulardii 250 MG CAP PO SCH ×2 (08:25→21:05)
[2020-05-13] MEDS: Gabapentin 300 MG CAP PO SCH ×3 (08:25→21:05)
[2020-05-13] MEDS: Famotidine 20 MG TAB PO SCH ×2 (08:25→21:04)
[2020-05-13] MEDS: Vancomycin HCl 1.75 GM in Sodium Chloride 0.9% 500 ML IVPB SCH ×3 (08:26→23:39)
[2020-05-13] MEDS: Senokot S 8.6-50 MG TAB PO SCH ×2 (08:26→21:06)
[2020-05-13] MEDS: Chlorhexidine Gluconate 15 ML UDCUP SSP SCH ×2 (08:44→21:03)
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
[2020-05-13] MEDS ORDERED: Acetaminophen 325 MG/10.15 ML UDCUP PER TUBE SCH ×2 (19:45→23:59)
[2020-05-13] MEDS: Melatonin 3 MG TAB PO SCH (21:06)
[2020-05-13 22:38] LABS: Vancomycin, Trough 19.1 ug/mL
--- NOTE | 2020-05-13 23:34 | PRG ---
DATE OF SERVICE: 05/13/2020 SUBJECTIVE: The patient was seen during evening rounds on the surgical floor. The patient was just moved earlier this evening from the Critical Care Unit. The patient had his lumbar drain removed earlier today by Neurosurgery. The patient is currently awake, alert, in no distress. The patient has a sitter at bedside. The patient is able to speak with his speaking valve in place. The patient denies any concerns. The patient denies any pain or headache. The patient reports that he did walk some earlier today. OBJECTIVE: VITAL SIGNS: Stable, afebrile. GENERAL: Well-appearing young male, awake, alert, in no distress. The patient's [place] coma scale is 15. PLAN: 1. Continue supportive care. 2. Continue physical and occupational therapy. 3. Continue sitter at bedside at all times. 4. The patient is pending placement to [facility] where they have psychiatric capabilities. Job ID: [id number]
[2020-05-14] MEDS: Acetaminophen 325 MG/10.15 ML UDCUP PER TUBE SCH ×4 (01:54→20:48)
[2020-05-14] MEDS: Cefepime 2 GM in Sodium Chloride 0.9% 100 ML IVPB SCH ×2 (04:56→11:51)
[2020-05-14] MEDS: metroNIDAZOLE 500 MG in Premix Bag 1 BAG IVPB SCH ×2 (05:36→16:01)
[2020-05-14] MEDS: traMADol HCl 50 MG TAB PO SCH ×4 (05:37→18:17)
[2020-05-14 05:53] LABS: Anion Gap 10 mmol/L (10-20); BUN (Urea Nitrogen) 12 mg/dL (8.9-20.6); Calc. Creatinine Clearance 177 mL/min (70-130); Calcium 8.1 mg/dL (7.8-10.44); Carbon Dioxide 24 mmol/L (22-29); Chloride 105 mmol/L (98-107); Estimated GFR-MDRD Greater than 90; Glucose 100 mg/dL (70-105); Magnesium 2.1 mg/dL (1.6-2.6); Phosphorus 3.6 mg/dL (2.3-4.7); Potassium 3.8 mmol/L (3.5-5.1); Sodium 135 mmol/L (136-145)
[2020-05-14 06:29] LABS: Band 5 % (5-11); Eosinophils 4 % (0-10); Hemoglobin 10.4 g/dL (14.0-18.0); Lymphocytes 21 % (21-51); MDiff Complete? YES; Mean Corpuscular HGB CONC 33.1 g/dL (32.0-36.0); Mean Corpuscular Hemoglobin 31.3 pg (27.0-31.0); Mean Corpuscular Volume 94.7 fL (78.0-98.0); Mean Platelet Volume 7.3 fL (7.4-10.4); Monocytes 6 % (0-10); Neutrophil 64 % (42-75); Platelet Count 654 thou/uL (130-400); RBC Distribution Width 12.5 % (11.5-14.5); Red Blood Cell (RBC) Count 3.32 mill/uL (4.70-6.10); White Blood Cell (WBC) Count 8.4 thou/uL (4.8-10.8)
[2020-05-14] MEDS: Vancomycin HCl 1.75 GM in Sodium Chloride 0.9% 500 ML IVPB SCH (06:39)
[2020-05-14] MEDS: Chlorhexidine Gluconate 15 ML UDCUP SSP SCH ×2 (10:20→20:48)
[2020-05-14] MEDS: Gabapentin 300 MG CAP PO SCH ×3 (10:20→20:49)
[2020-05-14] MEDS: Saccharomyces boulardii 250 MG CAP PO SCH ×2 (10:20→20:49)
[2020-05-14] MEDS: Senokot S 8.6-50 MG TAB PO SCH ×2 (10:21→21:13)
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
[2020-05-14] MEDS: Famotidine 20 MG TAB PO SCH ×2 (11:51→20:49)
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
[2020-05-14] MEDS: Melatonin 3 MG TAB PO SCH (20:49)
[2020-05-14] MEDS: oxyCODONE 5 MG TAB PO PRN (20:52)
[2020-05-15] MEDS: traMADol HCl 50 MG TAB PO SCH ×4 (00:44→18:50)
[2020-05-15] MEDS: Acetaminophen 325 MG/10.15 ML UDCUP PER TUBE SCH ×4 (02:51→18:49)
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
--- NOTE | 2020-05-15 10:36 | PRG ---
DATE OF SERVICE: 05/15/2020 Mr. Galindo on rounds early this morning. He is resting comfortably with a sitter in the room. Television was on. He did not express any need or complaint to me. Vitals look relatively stable. His neurological examination is as well. Bandages can be removed from the scalp. He can shower from our perspective. Job ID: [id number]
[2020-05-15] MEDS: Chlorhexidine Gluconate 15 ML UDCUP SSP SCH ×2 (10:49→21:05)
[2020-05-15] MEDS: Gabapentin 300 MG CAP PO SCH ×3 (10:50→21:06)
[2020-05-15] MEDS: Senokot S 8.6-50 MG TAB PO SCH (10:52)
[2020-05-15] MEDS: Saccharomyces boulardii 250 MG CAP PO SCH (11:00)
[2020-05-15] MEDS: Famotidine 20 MG TAB PO SCH ×2 (11:00→21:06)
[2020-05-15] MEDS: oxyCODONE 5 MG TAB PO PRN ×2 (12:21→21:07)
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
[2020-05-15] MEDS ORDERED: Senokot S 8.6-50 MG TAB PO PRN (19:54)
[2020-05-15] MEDS: Melatonin 3 MG TAB PO SCH (21:06)
[2020-05-16] MEDS: traMADol HCl 50 MG TAB PO SCH ×4 (01:02→18:46)
[2020-05-16] MEDS: Acetaminophen 325 MG/10.15 ML UDCUP PER TUBE SCH ×4 (01:03→21:11)
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
[2020-05-16] MEDS: Chlorhexidine Gluconate 15 ML UDCUP SSP SCH ×2 (10:04→21:12)
[2020-05-16] MEDS: Famotidine 20 MG TAB PO SCH ×2 (10:05→21:12)
[2020-05-16] MEDS: Gabapentin 300 MG CAP PO SCH ×3 (10:05→21:13)
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
[2020-05-16] MEDS: Melatonin 3 MG TAB PO SCH (21:13)
[2020-05-17] MEDS: traMADol HCl 50 MG TAB PO SCH ×4 (00:18→18:13)
[2020-05-17] MEDS: Acetaminophen 325 MG/10.15 ML UDCUP PER TUBE SCH ×4 (02:46→16:24)
[2020-05-17] MEDS: Chlorhexidine Gluconate 15 ML UDCUP SSP SCH ×2 (09:52→21:43)
[2020-05-17] MEDS: Famotidine 20 MG TAB PO SCH ×2 (09:52→21:43)
[2020-05-17] MEDS: Gabapentin 300 MG CAP PO SCH ×3 (09:52→21:43)
[2020-05-17] MEDS: oxyCODONE 5 MG TAB PO PRN (13:45)
[2020-05-17] MEDS ORDERED: Acetaminophen 500 MG TAB PO SCH (18:15)
[2020-05-17] MEDS: Melatonin 3 MG TAB PO SCH (21:43)
[2020-05-18] MEDS: Acetaminophen 500 MG TAB PO SCH ×5 (00:28→23:50)
[2020-05-18] MEDS: traMADol HCl 50 MG TAB PO SCH ×5 (00:28→23:51)
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
[2020-05-18] MEDS: oxyCODONE 5 MG TAB PO PRN ×3 (10:44→18:51)
[2020-05-18] MEDS: Chlorhexidine Gluconate 15 ML UDCUP SSP SCH ×2 (10:45→20:41)
[2020-05-18] MEDS: Gabapentin 300 MG CAP PO SCH ×3 (10:45→20:40)
[2020-05-18] MEDS: Famotidine 20 MG TAB PO SCH ×2 (10:46→20:40)
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
[2020-05-18] MEDS: Melatonin 3 MG TAB PO SCH (20:40)
[2020-05-19] MEDS: Acetaminophen 500 MG TAB PO SCH ×3 (05:58→17:57)
[2020-05-19] MEDS: traMADol HCl 50 MG TAB PO SCH ×3 (05:59→17:57)
[2020-05-19] MEDS: Famotidine 20 MG TAB PO SCH ×2 (08:25→21:02)
[2020-05-19] MEDS: Chlorhexidine Gluconate 15 ML UDCUP SSP SCH ×2 (08:25→21:02)
[2020-05-19] MEDS: Gabapentin 300 MG CAP PO SCH ×3 (08:26→21:03)
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
[2020-05-19] MEDS: Melatonin 3 MG TAB PO SCH (21:02)
[2020-05-20] MEDS: traMADol HCl 50 MG TAB PO SCH ×5 (00:05→21:29)
[2020-05-20] MEDS: Acetaminophen 500 MG TAB PO SCH ×4 (00:05→18:45)
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
[2020-05-20 07:11] LABS: #Basophils 0.1 thou/uL (0.0-0.2); #Eosinphils 0.2 thou/uL (0.0-0.7); #Lymphocytes 1.8 thou/uL (1.20-3.40); #Monocytes 0.6 thou/uL (0.11-0.59); #Neutrophils 5.3 thou/uL (1.40-6.50); %Basophils 0.7 % (0.0-1.0); %Eosinophils 2.4 % (0.0-10.0); Hemoglobin 11.7 g/dL (14.0-18.0); Mean Corpuscular HGB CONC 33.8 g/dL (32.0-36.0); Mean Corpuscular Hemoglobin 31.7 pg (27.0-31.0); Mean Platelet Volume 7.8 fL (7.4-10.4); Platelet Count 400 thou/uL (130-400); RBC Distribution Width 12.5 % (11.5-14.5); Red Blood Cell (RBC) Count 3.68 mill/uL (4.70-6.10)
[2020-05-20] MEDS ORDERED: Ferrous Sulfate 325 MG TAB PO SCH (08:00)
[2020-05-20] MEDS: Ferrous Sulfate 325 MG TAB PO SCH ×2 (09:23→21:04)
[2020-05-20] MEDS: Famotidine 20 MG TAB PO SCH ×2 (09:23→21:04)
[2020-05-20] MEDS: Gabapentin 300 MG CAP PO SCH ×3 (09:23→21:04)
[2020-05-20] MEDS: Ascorbic Acid 500 mg Chewable Tablet PO SCH ×2 (09:23→21:04)
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
[2020-05-20] MEDS: Melatonin 3 MG TAB PO SCH (21:04)
[2020-05-21] MEDS: Acetaminophen 500 MG TAB PO SCH ×4 (00:15→18:17)
[2020-05-21] MEDS: traMADol HCl 50 MG TAB PO SCH ×4 (03:56→22:11)
[2020-05-21] MEDS: Ferrous Sulfate 325 MG TAB PO SCH ×2 (09:38→22:10)
[2020-05-21] MEDS: Famotidine 20 MG TAB PO SCH ×2 (09:38→22:10)
[2020-05-21] MEDS: Gabapentin 300 MG CAP PO SCH ×3 (09:38→22:10)
[2020-05-21] MEDS: Chlorhexidine Gluconate 15 ML UDCUP SSP SCH ×2 (09:39→22:11)
[2020-05-21] MEDS: Ascorbic Acid 500 mg Chewable Tablet PO SCH ×2 (09:39→22:09)
[2020-05-21] MEDS: traMADol HCl 50 MG TAB PO PRN ×2 (12:11→18:18)
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
--- NOTE | 2020-05-21 14:36 | PDOC.PALFU ---
Palliative Care Follow-up Note Patient had previously stated that he was going to be a father in a previous conversation, this was in response to identifying what a positive goal for the patient was. He initiated this on two different occasions. Family has requested this topic not be discussed or revisited with the patient.
[2020-05-21] MEDS: Melatonin 3 MG TAB PO SCH (22:10)
[2020-05-22] MEDS: Acetaminophen 500 MG TAB PO SCH ×4 (00:08→17:57)
[2020-05-22] MEDS: traMADol HCl 50 MG TAB PO SCH ×4 (04:42→22:15)
[2020-05-22] MEDS: traMADol HCl 50 MG TAB PO PRN ×3 (04:42→17:57)
[2020-05-22] MEDS: Ascorbic Acid 500 mg Chewable Tablet PO SCH ×2 (08:25→22:14)
[2020-05-22] MEDS: Famotidine 20 MG TAB PO SCH ×2 (08:25→22:14)
[2020-05-22] MEDS: Gabapentin 300 MG CAP PO SCH ×3 (08:25→22:14)
[2020-05-22] MEDS: Ferrous Sulfate 325 MG TAB PO SCH ×2 (08:25→22:14)
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
[2020-05-22] MEDS: Melatonin 3 MG TAB PO SCH (22:15)
[2020-05-22] MEDS: diphenhydrAMINE 50 MG/ML VIAL IVP PRN (22:17)
[2020-05-23] MEDS: Acetaminophen 500 MG TAB PO SCH ×6 (00:46→23:46)
[2020-05-23] MEDS: traMADol HCl 50 MG TAB PO SCH ×4 (04:09→21:42)
[2020-05-23] MEDS: traMADol HCl 50 MG TAB PO PRN ×3 (04:10→21:43)
[2020-05-23] MEDS: Ascorbic Acid 500 mg Chewable Tablet PO SCH ×2 (09:21→21:41)
[2020-05-23] MEDS: Gabapentin 300 MG CAP PO SCH ×3 (09:21→21:41)
[2020-05-23] MEDS: Famotidine 20 MG TAB PO SCH ×2 (09:21→21:41)
[2020-05-23] MEDS: Ferrous Sulfate 325 MG TAB PO SCH ×2 (09:22→21:41)
[2020-05-23] MEDS: Chlorhexidine Gluconate 15 ML UDCUP SSP SCH ×2 (09:33→21:41)
[2020-05-23 11:30] LABS: #Eosinphils 0.1 thou/uL (0.0-0.7); #Lymphocytes 1.1 thou/uL (1.20-3.40); #Monocytes 0.8 thou/uL (0.11-0.59); #Neutrophils 8.4 thou/uL (1.40-6.50); %Basophils 0.4 % (0.0-1.0); %Eosinophils 1.4 % (0.0-10.0); %Lymphocytes 10.5 % (21.0-51.0); %Monocytes 7.9 % (0.0-10.0); %Neutrophils 79.8 % (42.0-75.0); Hemoglobin 11.5 g/dL (14.0-18.0); Mean Corpuscular HGB CONC 34.3 g/dL (32.0-36.0); Mean Corpuscular Hemoglobin 31.3 pg (27.0-31.0); Mean Corpuscular Volume 91.4 fL (78.0-98.0); Mean Platelet Volume 8.2 fL (7.4-10.4); Platelet Count 265 thou/uL (130-400); RBC Distribution Width 12.6 % (11.5-14.5); Red Blood Cell (RBC) Count 3.66 mill/uL (4.70-6.10); White Blood Cell (WBC) Count 10.5 thou/uL (4.8-10.8)
[2020-05-23 11:49] LABS: Anion Gap 15 mmol/L (10-20); BUN (Urea Nitrogen) 11 mg/dL (8.9-20.6); Calc. Creatinine Clearance 134 mL/min (70-130); Calcium 9.2 mg/dL (7.8-10.44); Carbon Dioxide 27 mmol/L (22-29); Chloride 99 mmol/L (98-107); Estimated GFR-MDRD Greater than 90; Glucose 107 mg/dL (70-105); Phosphorus 3.9 mg/dL (2.3-4.7); Potassium 4.6 mmol/L (3.5-5.1); Sodium 136 mmol/L (136-145)
--- NOTE | 2020-05-23 13:52 | RAD ---
KUB: Date: 05-23-2020 PROVIDED CLINICAL HISTORY: Evidence for ileus FINDINGS: Percutaneous gastrostomy catheter overlies the left upper quadrant. IVC filter is noted. The abdomina l bowel gas pattern is nonspecific. There are no radiographic findings to suggest bowel obstruction. The supine nature of the examination is not sensitive for detection of pneumoperitoneum. IMPRESSION: Nonspecific bowel gas pattern. POS: SARAH
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
[2020-05-23 20:23] LABS: ALT (SGPT) 14 U/L (8-55); AST (SGOT) 18 U/L (5-34); Albumin 3.3 g/dL (3.5-5.0); Alkaline Phosphatase 107 U/L (40-110); Bilirubin, Direct 0.2 mg/dL (0.1-0.3); Bilirubin, Total 0.6 mg/dL (0.2-1.2); Protein, Total 6.9 g/dL (6.0-8.3)
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
[2020-05-23] MEDS: Melatonin 3 MG TAB PO SCH (21:42)
[2020-05-24] MEDS: traMADol HCl 50 MG TAB PO SCH ×4 (03:43→21:04)
[2020-05-24] MEDS: traMADol HCl 50 MG TAB PO PRN (03:43)
[2020-05-24] MEDS: Acetaminophen 500 MG TAB PO SCH ×4 (07:40→23:41)
[2020-05-24] MEDS: Gabapentin 300 MG CAP PO SCH ×3 (09:12→21:03)
[2020-05-24] MEDS: Ascorbic Acid 500 mg Chewable Tablet PO SCH (09:12)
[2020-05-24] MEDS: Ferrous Sulfate 325 MG TAB PO SCH ×2 (09:40→21:04)
[2020-05-24] MEDS: Famotidine 20 MG TAB PO SCH ×2 (09:40→21:03)
[2020-05-24] MEDS ORDERED: Morphine 2 MG/ML VIAL SLOW IVP SCH (17:15)
[2020-05-24 20:04] LABS: SARS-CoV-2 IgG Ab Non-Reactive (NonReactive); SARS-CoV-2 IgG Index 0.02 S/CO (< 1.40)
[2020-05-24] MEDS: Melatonin 3 MG TAB PO SCH (21:03)
[2020-05-25] MEDS: traMADol HCl 50 MG TAB PO PRN ×3 (03:32→17:00)
[2020-05-25] MEDS: traMADol HCl 50 MG TAB PO SCH ×4 (03:32→21:23)
[2020-05-25] MEDS: Acetaminophen 500 MG TAB PO SCH ×3 (05:22→17:52)
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
[2020-05-25] MEDS: Gabapentin 300 MG CAP PO SCH ×3 (08:26→21:19)
[2020-05-25] MEDS: Ferrous Sulfate 325 MG TAB PO SCH ×2 (08:26→21:19)
[2020-05-25] MEDS: Famotidine 20 MG TAB PO SCH ×2 (08:26→21:18)
[2020-05-25] MEDS: Chlorhexidine Gluconate 15 ML UDCUP SSP SCH ×2 (08:32→21:20)
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
[2020-05-25] MEDS: Amoxicillin/Potassium Clav 600 mg/5 ml Oral Suspension PO SCH (21:17)
[2020-05-25] MEDS: Melatonin 3 MG TAB PO SCH (21:19)
[2020-05-26] MEDS: Acetaminophen 500 MG TAB PO SCH ×5 (00:25→23:56)
[2020-05-26] MEDS: traMADol HCl 50 MG TAB PO SCH ×4 (03:24→20:50)
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
[2020-05-26] MEDS: Famotidine 20 MG TAB PO SCH ×2 (10:08→20:55)
[2020-05-26] MEDS: Ferrous Sulfate 325 MG TAB PO SCH ×2 (10:08→20:56)
[2020-05-26] MEDS: Gabapentin 300 MG CAP PO SCH ×3 (10:09→20:50)
[2020-05-26] MEDS: Amoxicillin/Potassium Clav 600 mg/5 ml Oral Suspension PO SCH ×2 (10:15→20:50)
[2020-05-26] MEDS: Polyethylene Glycol 3350 17 GM Packet PO SCH (10:16)
[2020-05-26] MEDS: traMADol HCl 50 MG TAB PO PRN ×2 (10:22→16:04)
[2020-05-26] MEDS: Melatonin 3 MG TAB PO SCH (20:50)
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
[2020-05-27] MEDS: traMADol HCl 50 MG TAB PO PRN ×2 (02:57→09:33)
[2020-05-27] MEDS: traMADol HCl 50 MG TAB PO SCH ×2 (02:57→09:31)
[2020-05-27] MEDS: Acetaminophen 500 MG TAB PO SCH ×2 (06:37→12:39)
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
[2020-05-27] MEDS ORDERED: Saccharomyces boulardii 250 MG CAP PO SCH (09:00)
[2020-05-27] MEDS: Gabapentin 300 MG CAP PO SCH (09:34)
[2020-05-27] MEDS: Polyethylene Glycol 3350 17 GM Packet PO SCH (09:35)
[2020-05-27] MEDS: Famotidine 20 MG TAB PO SCH (09:37)
[2020-05-27] MEDS: Ferrous Sulfate 325 MG TAB PO SCH (09:37)
[2020-05-27] MEDS: Amoxicillin/Potassium Clav 600 mg/5 ml Oral Suspension PO SCH (10:37)
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
[2020-05-27 14:33] VITALS: BP 102/63; TEMP 97.9
[2020-05-27] MEDS: Chlorhexidine Gluconate 15 ML UDCUP SSP SCH (14:36)
== END 2020-05-27 13:24 | DRG 3 ==
LOC: ERS 19:53 → EEVIPCON 19:53 → CCU 23:56 → SJJU 05-13 20:43
PROVIDERS: ADMIT Surgery; ATTEND Surgery
PROC: 0BH18EZ Insertion of Endotracheal Airway into Trachea, Via Natural or Artificial Opening Endoscopic (ICD-10-PCS; 2020-04-28)
PROC: 5A1945Z Respiratory Ventilation, 24-96 Consecutive Hours (ICD-10-PCS; 2020-04-28)
PROC: 0B113F4 Bypass Trachea to Cutaneous with Tracheostomy Device, Percutaneous Approach (ICD-10-PCS; principal; 2020-04-30)
PROC: 0DH63UZ Insertion of Feeding Device into Stomach, Percutaneous Approach (ICD-10-PCS; 2020-04-30)
PROC: 3E0G76Z Introduction of Nutritional Substance into Upper GI, Via Natural or Artificial Opening (ICD-10-PCS; 2020-04-30)
PROC: 0ND Head and Facial Bones, Extraction (ICD-10-PCS; 2020-05-01)
PROC: 0NU00JZ Supplement Skull with Synthetic Substitute, Open Approach (ICD-10-PCS; 2020-05-01)
PROC: 06H03DZ Insertion of Intraluminal Device into Inferior Vena Cava, Percutaneous Approach (ICD-10-PCS; 2020-05-04)
PROC: B519YZZ Fluoroscopy of Inferior Vena Cava using Other Contrast (ICD-10-PCS; 2020-05-04)
PROC: 0JU Subcutaneous Tissue and Fascia, Supplement (ICD-10-PCS; 2020-05-07)
PROC: 0JBM0ZZ Excision of Left Upper Leg Subcutaneous Tissue and Fascia, Open Approach (ICD-10-PCS; 2020-05-07)
PROC: 0DP6XUZ Removal of Feeding Device from Stomach, External Approach (ICD-10-PCS; 2020-05-26)
DX: S06.6X0A Traumatic subarachnoid hemorrhage without loss of consciousness, initial encounter (principal); J96.00 Acute respiratory failure, unspecified whether with hypoxia or hypercapnia; S06.1X0A Traumatic cerebral edema without loss of consciousness, initial encounter; J15.9 Unspecified bacterial pneumonia; J69.0 Pneumonitis due to inhalation of food and vomit; E87.1 Hypo-osmolality and hyponatremia; G96.00 Cerebrospinal fluid leak, unspecified; K94.22 Gastrostomy infection; E87.3 Alkalosis; R40.2342 Coma scale, best motor response, flexion withdrawal, at arrival to emergency department; Z20.828 Contact with and (suspected) exposure to other viral communicable diseases; R40.2112 Coma scale, eyes open, never, at arrival to emergency department; R40.2222 Coma scale, best verbal response, incomprehensible words, at arrival to emergency department; F41.9 Anxiety disorder, unspecified; F31.9 Bipolar disorder, unspecified; F17.210 Nicotine dependence, cigarettes, uncomplicated; S05.12XA Contusion of eyeball and orbital tissues, left eye, initial encounter; F10.10 Alcohol abuse, uncomplicated; S02.32XA Fracture of orbital floor, left side, initial encounter for closed fracture; S02.832A Fracture of medial orbital wall, left side, initial encounter for closed fracture; G93.89 Other specified disorders of brain; S02.80XA Fracture of other specified skull and facial bones, unspecified side, initial encounter for closed fracture; F15.10 Other stimulant abuse, uncomplicated; E83.42 Hypomagnesemia; E83.39 Other disorders of phosphorus metabolism; J34.89 Other specified disorders of nose and nasal sinuses; Y83.3 Surgical operation with formation of external stoma as the cause of abnormal reaction of the patient, or of later complication, without mention of misadventure at the time of the procedure; E83.51 Hypocalcemia; Z90.49 Acquired absence of other specified parts of digestive tract; Z91.14 Patient's other noncompliance with medication regimen
CPT/HCPCS: 31500; 31624; 36415; 36416; 37191; 51702; 70450; 70486; 70496; 70498; 71045; 72125; 74018; 80048; 80053; 80076; 80185; 80202; 80306; 80307; 81003; 82550; 82805; 83605; 83735; 83930; 84100; 85007; 85025; 85027; 85384; 85610; 85730; 86769; 86850; 86900; 86901; 87070; 87205; 90471; 90715; 93005; 93970; 93975; 94002; 94003; 94640; 94760; 96365; 96366; 96367; 96375; 99292; C1713; C1769; G0390; J0171; J0690; J0692; J0696; J1100; J1170; J1200; J1580; J1644; J1815; J2250; J2270; J2370; J2405; J2704; J3010; J3370; J3475; J3490; J7030; J7050; Q2009; Q9967; S0028

== ENCOUNTER 2020-06-22 10:54 | Outpatient (CLI) | payer OTHER ==
[~2020-06-22 10:54] MED LIST: Iopamidol 370 76% 100 ML VIAL ONE
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
== END 2020-06-22 10:55 | disposition home or self-care (01) ==
LOC: CT 10:54
PROVIDERS: ATTEND Surgery
DX: S06.369A Traumatic hemorrhage of cerebrum, unspecified, with loss of consciousness of unspecified duration, initial encounter (principal); S00.83XA Contusion of other part of head, initial encounter; R93.89 Abnormal findings on diagnostic imaging of other specified body structures; Z98.890 Other specified postprocedural states
CPT/HCPCS: 70470